=== PATIENT | female | born 1965 | race Hispanic/Latino ===

== ENCOUNTER 2021-12-29 10:05 | Outpatient (CLI) | payer BC | END 2021-12-29 10:06 | disposition home or self-care (01) | LOC: LABBT 10:05 | PROVIDERS: ATTEND Surgery | DX: Z20.822 Contact with and (suspected) exposure to COVID-19 (principal) | CPT/HCPCS: 87811 ==

== ENCOUNTER → 2021-12-31 | Day surgery (SDC) | payer BC | END | disposition home or self-care (01) | LOC: SDC 13:55 | PROVIDERS: ATTEND Surgery | DX: K21.9 Gastro-esophageal reflux disease without esophagitis (principal); K44.9 Diaphragmatic hernia without obstruction or gangrene | CPT/HCPCS: 91010 ==

== ENCOUNTER 2022-02-15 13:37 | Outpatient (CLI) | payer BC ==
[2022-02-15 14:41] LABS: #Monocytes 0.4 10x3/uL (0.0-1.1); #Neutrophils 4.1 10x3/uL (1.5-8.4); %Basophils 0.6 % (0.0-2.0); %Eosinophils 0.6 % (0.0-6.0); %Lymphocytes 24.6 % (18.0-47.0); %Monocytes 7.1 % (0.0-10.0); %Neutrophils 66.9 % (40.0-75.0); Hemoglobin 13.4 g/dL (12.0-15.5); Mean Corpuscular HGB CONC 32.2 g/dL (32.0-36.0); Mean Corpuscular Hemoglobin 28.9 pg (27.0-33.0); Mean Corpuscular Volume 89.7 fl (81.6-98.3); Platelet Count 323 10x3/uL (150-450); RBC Distribution Width 12.8 % (11.5-14.5); Red Blood Cell (RBC) Count 4.64 10x6/uL (3.90-5.03); White Blood Cell (WBC) Count 6.2 10x3/uL (3.5-10.5)
[2022-02-15 15:00] LABS: ALT (SGPT) 19 U/L (8-55); AST (SGOT) 18 U/L (5-34); Albumin 3.8 g/dL (3.5-5.0); Alkaline Phosphatase 60 U/L (40-110); Anion Gap 12 mmol/L (10-20); BUN (Urea Nitrogen) 16 mg/dL (9.8-20.1); Bilirubin, Total 0.4 mg/dL (0.2-1.2); Calc. Creatinine Clearance 0 mL/min (70-130); Calcium 9.1 mg/dL (7.8-10.44); Carbon Dioxide 26 mmol/L (22-29); Chloride 107 mmol/L (98-107); Estimated GFR 82; Globulin 2.6 g/dL (2.4-3.5); Glucose 103 mg/dL (70-105); Potassium 4.2 mmol/L (3.5-5.1); Protein, Total 6.4 g/dL (6.0-8.3); Sodium 141 mmol/L (136-145)
== END 2022-02-15 13:38 | disposition home or self-care (01) ==
LOC: LABBT 13:37
PROVIDERS: ATTEND Surgery
DX: Z01.818 Encounter for other preprocedural examination (principal); K21.9 Gastro-esophageal reflux disease without esophagitis; K22.4 Dyskinesia of esophagus
CPT/HCPCS: 80053; 85025; 93005; 93010

== ENCOUNTER 2022-05-01 17:20 | Emergency (ER) | payer BC, SELFPAY | END 2022-05-01 20:09 | disposition home or self-care (01) | LOC: ERS 17:20 | DX: I83.812 Varicose veins of left lower extremity with pain (principal) ==

== ENCOUNTER 2025-02-07 15:39 | Outpatient (CLI) | payer BC, OTHER, SELFPAY | END 2025-02-07 15:40 | disposition home or self-care (01) | LOC: BICMAMMO 15:39 | PROVIDERS: ATTEND Family Medicine | DX: Z12.31 Encounter for screening mammogram for malignant neoplasm of breast (principal) | CPT/HCPCS: 77063; 77067 ==